=== PATIENT | male | born 1995 | race African-American/Black ===

== ENCOUNTER 2020-05-26 06:16 | Emergency (ER) | payer MEDICAID ==
[~2020-05-26] VITALS: Ht 172.7 cm; Wt 77.0 kg
[2020-05-26] MEDS ORDERED: CEFTRIAXONE SODIUM 250 MG/VIAL IM ONE (07:00)
[2020-05-26] MEDS ORDERED: KETOROLAC 60MG/2ML VIAL IM ONE (07:00)
[2020-05-26] MEDS ORDERED: AZITHROMYCIN 500 MG TABLET PO ONE (07:00)
[2020-05-26 07:21] VITALS: BP 134/70
[2020-05-26 09:09] LABS: CLARITY URINE CLEAR (CLEAR); COLOR URINE YELLOW (YELLOW); KETONES URINE NEGATIVE (NEGATIVE); LEUKOCYTE ESTERASE URINE NEGATIVE (NEGATIVE); NITRITE URINE NEGATIVE (NEGATIVE); OCCULT BLOOD URINE NEGATIVE (NEGATIVE); PROTEIN URINE NEGATIVE (NEGATIVE); SPECIFIC GRAVITY URINE 1.012 (1.005-1.030)
[2020-05-30 06:11] LABS: NEISSERIA GONORRHOEAE NAA Negative (Negative)
== END 2020-05-26 07:12 | disposition left against medical advice (07) ==
LOC: ER 06:16
DX: R51.9 Headache, unspecified (principal); R30.0 Dysuria; Z20.2 Contact with and (suspected) exposure to infections with a predominantly sexual mode of transmission
CPT/HCPCS: 81003; 87491; 87591; 96372; 99284; J0696; J1885

== ENCOUNTER 2021-08-27 19:42 | Emergency (ER) | payer MEDICAID ==
[~2021-08-27] VITALS: Ht 175.3 cm; Wt 75.0 kg
[2021-08-27 20:26] VITALS: BP 108/64
[2021-08-27 22:25] LABS: CLARITY URINE CLEAR (CLEAR); COLOR URINE YELLOW (YELLOW); KETONES URINE NEGATIVE (NEGATIVE); LEUKOCYTE ESTERASE URINE 3+ (NEGATIVE); NITRITE URINE NEGATIVE (NEGATIVE); OCCULT BLOOD URINE TRACE (NEGATIVE); PH URINE 6.5 (4.5-8.0); PROTEIN URINE NEGATIVE (NEGATIVE); SPECIFIC GRAVITY URINE 1.004 (1.005-1.030); UROBILINOGEN URINE 0.2 E.U./dL (0.2-1.0)
[2021-08-27] MEDS ORDERED: CEFTRIAXONE SODIUM 500 MG/VIAL IM ONE (22:30)
[2021-08-27] MEDS ORDERED: LIDOCAINE HCL 1% 20ML VIAL (Pyxis) INJ INFIL ONE (22:30)
[2021-08-27] MEDS ORDERED: DOXYCYCLINE HYCLATE 100MG CAPSULE PO ONE (22:30)
[2021-08-27] MEDS ORDERED: CIPR500T5 MT (23:05)
[2021-08-27] MEDS ORDERED: DOXY100T2 MT (23:05)
[2021-08-31 04:10] LABS: NEISSERIA GONORRHOEAE NAA Positive (Negative)
== END 2021-08-27 23:13 | disposition home or self-care (01) ==
LOC: ER 19:42
DX: N39.0 Urinary tract infection, site not specified (principal); Z20.2 Contact with and (suspected) exposure to infections with a predominantly sexual mode of transmission; Z98.890 Other specified postprocedural states
CPT/HCPCS: 81003; 87491; 87591; 96372; 99283; J0696; J3490